=== PATIENT | female | born 2000 | race American Indian/Alaskan Native ===

== ENCOUNTER 2021-09-24 15:28 | Emergency (ER) | payer MEDICAID ==
[2021-09-24 15:41] VITALS: BP 105/60
[2021-09-24] MEDS ORDERED: METOCLOPRAMIDE 10 MG/2 ML INJ IV ONE (16:24)
[2021-09-24] MEDS ORDERED: SODIUM CHLORIDE 0.9% 1000 ML 1,000 ML IV ONE (16:24)
[2021-09-24] MEDS ORDERED: diphenhydrAMINE 50 MG/ML VIAL IV ONE (16:24)
[2021-09-24] MEDS ORDERED: FAMOTIDINE 20 MG/2 ML INJ IV ONE (16:24)
[2021-09-24 17:08] LABS: Basophils % (Auto) 0.7 % (0.0-1.8); Hematocrit 33.3 % (30.3-42.9); Hemoglobin 11.5 gm/dl (10.1-14.3); Lymphocytes # (Auto) 0.8 K/mm3 (1.2-5.4); Lymphocytes % (Auto) 11.6 % (13.4-35.0); Mean Corpuscular HGB Conc 35 % (30-34); Mean Corpuscular Volume 80 fl (79-97); Monocytes # (Auto) 0.4 K/mm3 (0.0-0.8); Platelet Count 317 K/mm3 (140-440); Red Blood Count 4.14 M/mm3 (3.65-5.03); Red Cell Distribution Width 14.3 % (13.2-15.2)
[2021-09-24 17:50] LABS: Alanine Aminotransferase 34 units/L (7-56); Albumin 4.3 g/dL (3.9-5); Blood Urea Nitrogen 11 mg/dL (7-17); Calcium 9.3 mg/dL (8.4-10.2); Hemolysis Index 1
[2021-09-24 18:01] LABS: BUN/Creatinine Ratio 22
--- NOTE | 2021-09-24 19:08 | Ultrasound Report ---
ULTRASOUND OBSTETRIC INDICATION / CLINICAL INFORMATION: ABDOMINAL PAIN, . Clinical Gestational Age (GA): 7 weeks 2 days TECHNIQUE: Transabdominal. COMPARISON: None available. FINDINGS: GESTATIONAL SAC: Well-defined oval shape and intrauterine in location. YOLK SAC: No significant abnormality. EMBRYO/FETUS: No significant abnormality. - [place]-Rump Length = 1.90 cm = 8 weeks, 3 day(s). - Heart Rate, beats per minute (if present) = 185 ADNEXA: No significant abnormality. Both ovaries are well-visualized and have a normal sonographic ap pearance. FREE FLUID: None. ADDITIONAL FINDINGS: None. IMPRESSION: 1. Single, living intrauterine with estimated sonographic age of 8 weeks, 3 day(s). Signer Name: Alexandra Harper MD Signed: 09/24/2021 7:04 PM Workstation Name: [id number]
[2021-09-24 19:57] LABS: Bilirubin,Urine NEG (Negative); Blood,Urine NEG (Negative); Color,Urine Yellow (Yellow)
[2021-09-24 19:59] LABS: Mucus,Urine 3+ /HPF
--- NOTE | 2021-09-24 20:56 | Emergency Department Report ---
ED N/V/D HPI - General Chief complaint: Abdominal Pain Stated complaint: CRAMPING/ Source: patient, EMS Mode of arrival: Stretcher Limitations: No Limitations - History of Present Illness Initial comments: Patient is a A1 21-year-old -Tongan female who is approximately 8 weeks gestation presents to the ED with complaint of acute onset persistent diffuse abdominal pain, intractable nausea and vomiting for the last 1 week. Patient states that in the last 4 days he has not been able to keep anything down including fluids. Patient also complains of generalized weakness and fatigue. Patient denies vaginal bleeding, vaginal discharge, dizziness, syncope, headache, chest pain or shortness of breath, dysuria, urinary frequency or urgency, vaginal discharge, low back pain, sore throat, headache or cough MD complaint: nausea, vomiting, abdominal pain -: week(s) (1) Description of Vomiting: food contents, watery, bilious Associated Abdominal Pain: Yes (Mildly diffuse) Location: diffuse Radiation: none Severity: severe Pain Scale: 7 Quality: cramping, aching Consistency: constant Improves with: none Worsens with: eating, vomiting Context: other (8 weeks gestation) Associated Symptoms: denies other symptoms, myalgias, headaches, loss of appetite, malaise, nausea/vomiting. denies: chest pain, cough, diaphoresis, fever/chills, rash, dysuria, shortness of breath, syncope, weakness, other - Related Data Previous Rx's Medication Instructions Recorded Last Taken Type Acetaminophen [Tylenol] 500 mg PO Q6HR PRN #30 tablet 09/24/21 Unknown Rx Famotidine [Pepcid] 20 mg PO BID #60 tablet 09/24/21 Unknown Rx Vit No.112/Folate No6 1 mg PO DAILY #60 tab 09/24/21 Unknown Rx [Prenate Chewable Tablet] Promethazine [Phenergan] 12.5 mg IL Q6H PRN #20 supp.rect 09/24/21 Unknown Rx Promethazine [Phenergan] 25 mg PO Q6HR PRN #30 tab 09/24/21 Unknown Rx Allergies Allergy/AdvReac Type Severity Reaction Status Date / Time No Known Allergies Allergy Verified 09/24/21 15:42 ED Review of Systems ROS: Stated complaint: CRAMPING/ Other details as noted in HPI Constitutional: denies: chills, fever Eyes: denies: eye pain, eye discharge, vision change ENT: denies: ear pain, throat pain, dental pain, congestion Respiratory: denies: cough, shortness of breath, wheezing Cardiovascular: denies: chest pain, palpitations Endocrine: no symptoms reported Gastrointestinal: abdominal pain (Diffuse), nausea, vomiting. denies: diarrhea Genitourinary: denies: urgency, dysuria, discharge Musculoskeletal: denies: back pain, joint swelling, arthralgia Skin: denies: rash, lesions Neurological: denies: headache, weakness, paresthesias Psychiatric: denies: anxiety, depression Hematological/Lymphatic: denies: easy bleeding, easy bruising ED Past Medical Hx - Medications Home Medications: Home Medications Medication Instructions Recorded Confirmed Last Taken Type Acetaminophen [Tylenol] 500 mg PO Q6HR PRN #30 tablet 09/24/21 Unknown Rx Famotidine [Pepcid] 20 mg PO BID #60 tablet 09/24/21 Unknown Rx Vit No.112/Folate No6 1 mg PO DAILY #60 tab 09/24/21 Unknown Rx [Prenate Chewable Tablet] Promethazine [Phenergan] 12.5 mg IL Q6H PRN #20 supp.rect 09/24/21 Unknown Rx Promethazine [Phenergan] 25 mg PO Q6HR PRN #30 tab 09/24/21 Unknown Rx ED Physical Exam - General Limitations: No Limitations General appearance: alert, in no apparent distress - Head Head exam: Present: atraumatic, normocephalic, normal inspection - Eye Eye exam: Present: normal appearance, PERRL, EOMI Pupils: Present: normal accommodation - ENT ENT exam: Present: normal exam, normal orophraynx, mucous membranes moist, TM's normal bilaterally, normal external ear exam - Neck Neck exam: Present: normal inspection, full ROM - Respiratory Respiratory exam: Present: normal lung sounds bilaterally. Absent: respiratory distress, wheezes, rales, rhonchi, chest wall tenderness, accessory muscle use, decreased breath sounds, prolonged expiratory - Cardiovascular Cardiovascular Exam: Present: regular rate, normal rhythm, normal heart sounds. Absent: systolic murmur, diastolic murmur, rubs, gallop - GI/Abdominal GI/Abdominal exam: Present: soft, normal bowel sounds. Absent: tenderness, guarding, hyperactive bowel sounds, hypoactive bowel sounds - Extremities Exam Extremities exam: Present: normal inspection, full ROM, normal capillary refill - Back Exam Back exam: Present: normal inspection, full ROM. Absent: tenderness, CVA tenderness (R), CVA tenderness (L), muscle spasm, paraspinal tenderness, vertebral tenderness - Neurological Exam Neurological exam: Present: alert, oriented X3, CN II-XII intact, normal gait, reflexes normal - Psychiatric Psychiatric exam: Present: normal affect, normal mood - Skin Skin exam: Present: warm, dry, intact, normal color. Absent: rash ED Course Vital Signs 09/24/21 15:40 Pulse Rate 68 Blood Pressure 105/60 [Left] O2 Sat by Pulse 99 Oximetry ED Medical Decision Making - Lab Data Result diagrams: 09/24/21 16:42 09/24/21 16:42 - Radiology Data Radiology results: report reviewed, image reviewed [facility] [address] [place] [address] Ultrasound Report Signed Patient: DAVIS MORGAN MR#: [id number] : 2000 Acct:[id number] Age/Sex: 21 / F ADM Date: 09/24/21 Loc: ED Attending Dr: Ordering Physician: RAJINDER JAY Date of Service: 09/24/21 Procedure(s): US OB <= 14 weeks fetus Accession Number(s): [id number] cc: RJAINDER JAY ULTRASOUND OBSTETRIC INDICATION / CLINICAL INFORMATION: ABDOMINAL PAIN, . Clinical Gestational Age (GA): 7 weeks 2 days TECHNIQUE: Transabdominal. COMPARISON: None available. FINDINGS: GESTATIONAL SAC: Well-defined oval shape and intrauterine in location. YOLK SAC: No significant abnormality. EMBRYO/FETUS: No significant abnormality. - [place]-Rump Length = 1.90 cm = 8 weeks, 3 day(s). - Heart Rate, beats per minute (if present) = 185 ADNEXA: No significant abnormality. Both ovaries are well-visualized and have a normal sonographic appearance. FREE FLUID: None. ADDITIONAL FINDINGS: None. IMPRESSION: 1. Single, living intrauterine with estimated sonographic age of 8 weeks, 3 day(s). Signer Name: Alexandra Harper MD Signed: 09/24/2021 7:04 PM Workstation Name: [id number] Transcribed By: JR Dictated By: Alexandra Harper MD Electronically Authenticated By: Alexandra Harper MD Signed Date/Time: 09/24/211903 DD/ 01 TD/TT: - Medical Decision Making This is a A1 21-year-old -Tong[place] female who is approximately 8 weeks gestation presents to the ED with complaint of acute onset persistent diffuse abdominal pain, intractable nausea and vomiting for the last 1 week. Patient states that in the last 4 days he has not been able to keep anything down including fluids. Patient also complains of generalized weakness and fatigue. In the ED, patient is alert and oriented x3 and is not in any distress. Patient was treated for pain in the ED and also treated for nausea and vomiting and given normal saline 1 L IV bolus x1 as well as antacids. Lab test results were reviewed and showed no acute abnormalities except mild hypona tremia of 135 mmol/L and hypokalemia of 3.5 mmol/L. Transvaginal ultrasound showed a single, living intrauterine with estimated sonographic age of 8 weeks, 3 day(s) with a heart rate of 185 bpm. On reevaluation, patient passed oral fluid challenge in the ED. Patient felt better, patient was discharged home on medications and advised to follow-up with her primary care physician or [facility] physician in 5 to 7 days for reevaluation. Patient was advised to maintain a clear liquid diet for 12 to 24 hours while taking medications. Patient was advised to return to the ED immediately if symptoms get worse. - Differential Diagnosis Dehydration; UTI; GERD; hyperemesis; viral syndrome; Critical care attestation.: If time is entered above; I have spent that time in minutes in the direct care of this critically ill patient, excluding procedure time. ED Disposition Clinical Impression: Hyperemesis gravidarum, Nausea and vomiting in prior to 22 weeks gestation Disposition: 01 HOME / SELF CARE / HOMELESS Is pt being admited?: No Does the pt Need Aspirin: No Condition: Stable Instructions: Abdominal Pain (ED), Nausea and Vomiting, Adult, [id number], Morning Sickness, [id number], Hyperemesis Gravidarum Additional Instructions: All lab test results were reviewed and are all nonactionable. Transvaginal ultrasound showed a single, living intrauterine with estimated sonographic age of 8 weeks, 3 day(s) with a heart rate of 185 bpm. Therefore maintain a clear liquid diet for 12 to 24 hours, drink plenty of fluids, take medication as needed for nausea and vomiting. Return to the ED immediately if symptoms get worse. Follow-up with your [facility] physician in 5 to 7 days for reevaluation. Prescriptions: Acetaminophen [Tylenol] 500 mg PO Q6HR PRN #30 tablet PRN Reason: Pain , Severe (7-10) Famotidine [Pepcid] 20 mg PO BID #60 tablet Promethazine [Phenergan] 25 mg PO Q6HR PRN #30 tab PRN Reason: Nausea Promethazine [Phenergan] 12.5 mg IL Q6H PRN #20 supp.rect PRN Reason: Nausea Vit No.112/Folate No6 [Prenate Chewable Tablet] 1 mg PO DAILY #60 tab Referrals: DAMARI BEST MD [Staff Physician] - 3-5 Days Time of Disposition: 21:02 Print Language: SPANISH
== END 2021-09-24 21:50 | disposition home or self-care (01) ==
LOC: ED 15:28
DX: O21.9 Vomiting of pregnancy, unspecified (principal); O21.1 Hyperemesis gravidarum with metabolic disturbance; Z3A.22 22 weeks gestation of pregnancy
CPT/HCPCS: 36415; 76801; 80053; 81001; 83690; 84702; 85025; 86900; 86901; 96361; 96374; 96375; 99284; J1200; J2765; J3490; J7030